=== PATIENT | female | born 1965 | race African-American/Black ===

== ENCOUNTER 2020-03-06 11:56 | Emergency (ER) | payer OTHER, SELFPAY ==
--- NOTE | ~2020-03-06 | XR_ITS ---
EXAMINATION: XR chest 1V portable DATE: 03/06/2020 13:24 INDICATION: Shortness of breath. TECHNIQUE: A single frontal view of the chest was obtained. COMPARISON: None. FINDINGS: The chest demonstrates clear lungs without pneumonia, pleural effusion, or pneumothorax. Th e heart size is normal. IMPRESSION: 1. No acute cardiopulmonary disease. Reviewed, dictated and finalized at location A.
[2020-03-06 12:06] VITALS: BP 159/104; PULSE 102; RESP 20; TEMP 37.3; O2SAT 95
--- NOTE | 2020-03-06 12:52 | ED.GENADULT ---
HPI - General Adult General Chief complaint: Unspecified Stated complaint: headaches/multiple complaints Time Seen by Provider: 03/06/20 12:17 History of Present Illness HPI narrative: History limited due to the fact that she is a poor historian. Alek reports several days of cough. It is productive. She says that she coughs until she spits and her sides hurt. Sometimes she feels short of breath. She has been seen at another ED and urgent care since the onset of her symptoms. It sounds like she was placed on antibiotics without improvement. She also reports loss of appetite and hematuria. Related Data Allergies Allergy/AdvReac Type Severity Reaction Status Date / Time ampicillin Allergy Unknown Unverified 02/21/15 18:52 codeine Allergy Unknown Unverified 02/21/15 18:52 Penicillins Allergy Unknown Unverified 02/21/15 18:52 Review of Systems Review of Systems: All systems reviewed & are unremarkable except as noted in HPI and below Constitutional: Constitutional: Reports chills and Reports fatigue Eyes: Eyes: Reports no additional eye complaints ENT: Reports dizziness, Reports nasal congestion and Reports sore throat Cardiovascular: Cardiovascular: Reports chest pain Respiratory: Respiratory: Reports chest congestion, Reports cough and Reports dyspnea Gastrointestinal: Gastrointestinal: Denies diarrhea and Reports nausea Genitourinary: Genitourinary: Reports hematuria and Reports flank pain Musculoskeletal: Musculoskeletal: Reports myalgias Neurologic: Denies syncope Endocrine: Endocrine: Denies polydipsia [facility] Past Medical History Medical History (Updated 03/06/20 @ 13:13 by Andrea Dixon MD) Asthma Hypertension Social History Social History (Updated 03/06/20 @ 13:13 by Andrea Dixon MD) Smoking status: Never smoker Gender identity (if verbalized by the patient): Female Exam Const: General: healthy appearing, no acute distress and alert Nutritional Appearance: obese Orientation/consciousness: patient oriented x3 HENMT: Head: normal to inspection Resp: Effort & Inspection: normal respiratory effort Auscultation: clear to auscultation bilaterally Cardio: Rate: regular rate Rhythm: regular rhythm GI: GI Palp: Yes Soft to palpation and No Tenderness to palpation present (GI) Skin: General skin exam: normal color Neuro: General: patient oriented x3 and moves all extremities Speech: normal speech Extrem: General: edema bilateral (trace) Psych: Affect: Anxious affect present Course Vital Signs Vital signs: Vital Signs Temperature 37.3 C 03/06/20 12:06 Pulse Rate 102 H 03/06/20 12:06 Respiratory Rate 20 03/06/20 12:06 Blood Pressure 159/104 H 03/06/20 12:06 Pulse Oximetry 95 03/06/20 12:06 Temperature 37.3 C 03/06/20 12:06 Pulse Rate 102 H 03/06/20 12:06 Respiratory Rate 20 03/06/20 12:06 Blood Pressure 159/104 H 03/06/20 12:06 Pulse Oximetry 95 03/06/20 12:06 Medical Decision Making MDM Narrative Medical decision making narrative: SHe has multiple complaint most concerning for viral URI. Possible that she could have UTI or pneumonia. Vital Signs Vital Signs: Vital Signs Temperature 37.3 C 03/06/20 12:06 Pulse Rate 102 H 03/06/20 12:06 Respiratory Rate 20 03/06/20 12:06 Blood Pressure 159/104 H 03/06/20 12:06 Pulse Oximetry 95 03/06/20 12:06 Temperature 37.3 C 03/06/20 12:06 Pulse Rate 102 H 03/06/20 12:06 Respiratory Rate 20 03/06/20 12:06 Blood Pressure 159/104 H 03/06/20 12:06 Pulse Oximetry 95 03/06/20 12:06 Discharge Plan Discharge Follow-up/Referrals: UNKNOWN,DOCTOR [Primary Care Provider] -
[2020-03-06 13:27] LABS: Basophils Percent Auto 0.2 % (0.2-1.2); Eosinophils Percent Auto 0.5 % (0-4.4); Hematocrit 42.9 % (37.0-47.0); Hemoglobin 13.6 g/dL (12.0-15.0); Immature Granulocyte Absolute 0.04 K/mm3 (0.00-0.031); Immature Granulocyte Percent A 0.5 % (0-0.5); Lymphocytes Absolute Auto 1.61 K/mm3 (0.9-3.2); Lymphocytes Percent Auto 19.7 % (18.3-44.2); Mean Corpuscular HGB Conc 31.7 g/dl (32-36); Mean Corpuscular Hemoglobin 27.3 pg (26-34); Mean Corpuscular Volume 86.1 fl (80-100); Mean Platelet Volume 9.1 fl (7.4-10.4); Monocytes Absolute Auto 0.6 K/mm3 (0.1-0.6); Monocytes Percent Auto 7.4 % (2.6-8.5); Neutrophils Absolute Auto 5.9 K/mm3 (1.3-6.7); Neutrophils Percent Auto 71.7 % (45.5-73.1); Platelet Count Result 338 k/mm3 (150-375); Red Blood Count 4.98 M/mm3 (4.2-5.4); Red Cell Distribution Width 14.6 % (11.5-14.5); White Blood Count 8.2 K/mm3 (4.5-10.0)
[2020-03-06 13:38] LABS: Blood Urea Nitrogen 7 mg/dL (7-17); Calcium 8.8 mg/dL (8.4-10.2); Carbon Dioxide 23 mmol/L (22-30); Chloride 107 mmol/L (98-107); Estimated Glomerular Filt Rate > 60; Glucose 99 mg/dL (65-105); Potassium 3.7 mmol/L (3.4-5.0); Sodium 139 mmol/L (137-145)
[2020-03-06] MEDS: KETOROLAC (*BKC) 60 MG/2 ML VIAL IM (14:06)
[2020-03-06 14:24] LABS: Add Urine Microscopic? YES; Appearance Urine Clear (Clear); Bacteria Urine Trace /hpf; Bilirubin Urine Negative (Negative); Blood Urine 1+ (Negative); Color Urine Yellow (Yellow); Glucose Urine UA Negative (Negative); Ketones Urine 1+ mg/dL (Negative); Leukocyte Esterase Ur Negative LEU/UL (Negative); Mucus Urine Rare /lpf; Nitrate Urine Negative (Negative); Protein Urine Negative (Negative); RBC Urine 0-2 /hpf (0-2); Specific Grav Ur 1.017 (1.001-1.035); Squamous Epithelial Cell Urine Moderate /hpf (Few); Urobilinogen Urine Negative mg/dL (<2.0); WBC Urine 0-3 /hpf
[2020-03-06 15:02] VITALS: BP 144/88; PULSE 82; RESP 16; O2SAT 99
[2020-03-06 15:42] VITALS: BP 160/100; PULSE 78; RESP 14; O2SAT 99
== END 2020-03-06 15:47 | disposition home or self-care (01) ==
PROVIDERS: Emergency Provider Emergency Medicine
DX: J06.9 Acute upper respiratory infection, unspecified (principal); J45.909 Unspecified asthma, uncomplicated; I10 Essential (primary) hypertension
CPT/HCPCS: 36415; 71045; 80048; 81001; 85025; 96372; 99283; J1885

== ENCOUNTER 2025-02-13 10:50 | Emergency (ER) | payer OTHER, SELFPAY ==
--- NOTE | ~2025-02-13 | US_ITS ---
EXAMINATION:US venous doppler LE BI INDICATION:Leg pain TECHNIQUE: Multiple grayscale, color flow and Doppler images of the right and left lower extremity de ep venous systems were obtained and reviewed. COMPARISON:No prior studies for comparison. FINDINGS: The common femoral, superficial femoral and popliteal veins demonstrate normal respiratory variation, augmentation and compressibility. Color flow is also seen within the posterior tibial, pe roneal, greater saphenous and profunda veins. IMPRESSION: 1: No lower extremity deep venous thrombosis. Reviewed, dictated and finalized at location B.
--- NOTE | ~2025-02-13 | XR_ITS ---
XR finger 1st RT min 2V 02/13/2025 12:02 Indication: Right first finger pain Procedure: 3 views right first finger Comparison: No prior studies for comparison. Findings: There is polyarticular osteoarthritis. No fracture, subluxation or dislocation. No signific ant soft tissue abnormality. No foreign bodies. Impression: 1: Moderate polyarticular osteoarthritis, most advanced at the first metacarpal phalangeal joint. Reviewed, dictated and finalized at location B. Impression: 1: Moderate polyarticular osteoarthritis, most advanced at the first metacarpal phalangeal joint.
--- OUTSIDE RECORDS SUMMARY | 2025-02-13 10:53 | XMS_ITS | Data Portability ---
Author Organization [facility] YULIYAShayla Address [address] [facility] [place] [address] Assessment No assessment recorded. Plan of Treatment Reminders Order Date Submit Date Provider Last Modified By Organization Details Last Modified Time Details Appointments None recorded. Lab TSH + free T4, serum 2021 [facility], [address] Mary [address], [address], [place], [address], 13:08:10 thyroperox idase Ab, serum 2021 NATAL[facility]A [facility], 2022 Mary Jo Nash, [address], [place], [address], 13:08:09 CBC 2021 [facility], 2022 Mary Jo Nash, [address], [place], [address], 13:08:10 lipid panel, serum 2021 [facility], 2022 Mary Jo Nash, [address], [place], [address], 13:08:10 CMP, serum or plasma 2021 [facility], 2022 Mary Jo Nash, [address], [place], [address], 13:08:09 Referral orthopedic surgeon referral 2021 022 [facility], [address] [place], [address], 3 11:45:37 plastic surgeon referral - right anterior neck . lipoma . PLease eval and treat . Thank you 2021 022 [facility] Damion Ramsey MD, [address] [facility] [place], [address], 2 12:30:19 Procedures None recorded. Surgeries None recorded. Imaging electromyo gram + nerve conduction study - possible carpal tunnel 2021 NATALIIAJulio Mcfadden, [address], [place], [address], 2 18:05:10 Medication Orders omeprazole 20 mg capsule,de layed release 2023 024 [facility] [address] In [facility], [address] [place] [address], [address], 4 12:53:21 Pennsaid 20 mg/gram/ac tuation (2 %) topical soln in metered-do se pump 2023 024 [facility] [address] In [facility], [address] [place] [address], [address], 4 12:36:52 albuterol sulfate HFA 90 mcg/actuat ion aerosol inhaler 2023 024 [facility] [address], [address], 4 12:36:51 ipratropiu m 0.5 mg-albuter ol 3 mg (2.5 mg base)/3 mL nebulizati on soln 2023 024 [facility] [address] In [facility], [address] [place] [address], [address], 4 12:36:50 promethazi ne-DM 6.25 mg-15 mg/5 mL oral syrup 2023 024 NATALIIA HARRY [address] In [facility], [address] [place] [address], [address], 4 12:41:38 olmesartan 20 mg tablet 2023 024 [facility] [address] In [facility], [address] [place] [address], [address], 4 12:36:50 Pennsaid 20 mg/gram/ac tuation (2 %) topical soln in metered-do se pump 2021 [facility], [address] [place] [address], [id number], 2 13:11:21 albuterol sulfate HFA 90 mcg/actuat ion aerosol inhaler 2021 022 [facility] [address] In [facility], [address] [place] [address], [address], 2 13:04:44 Qvar RediHaler 80 mcg/actuat ion HFA breath activated aerosol 2021 [facility] [address] In [facility], [address] [place] [address], [address], 2 13:04:45 olmesartan 20 mg tablet 2021 022 [facility], [address] [place] [address], [id number], 4 13:31:43 hydrochlor othiazide 25 mg tablet 2021 022 [email or web address] [address] In [facility], [address] [place] [address], [address], 2 12:45:18 Zithromax 500 mg tablet 2021 022 [email or web address] [address] In [facility], [address] [place] [address], [address], 12:12:10 promethazi ne 6.25 mg/5 mL oral syrup 2021 [facility] [address] In [facility], [address] [place] [address], [address], 2 19:53:36 Pennsaid 20 mg/gram/ac tuation (2 %) topical soln in metered-do se pump 2021 [facility], [address] [place] [address], [id number], 20:20:12 Pennsaid 20 mg/gram/ac tuation (2 %) topical soln in metered-do se pump 2021 [facility], [address] [place] [address], [id number], 11:24:45 prednisone 20 mg tablet 2021 [facility] [address], [address], 2 12:12:46 Patient TargetsNo targets recorded. Patient Instructions Encounter Date Encounter Id Patient Instructions Last Modified By Organization Details Last Modified Time 07/18/2022 [id number] When You Want to Lose Weight: Care Instructions [email or web address] Not available 07/18/2022 19:53:33 learning about h igh blood pressure [email or web address] Not available 07/18/2022 19:53:33 ear infection (otitis media): care instructions [email or web address] Not available 07/18/2022 19:53:33 Take your medications as directed. Keep adequate fluid intake. Keep comfortable. The temperature is cooling a bit now, but stay well hydrated. Follow the 5 [place] [facility]. Follow up with your doctor lissa Not available 07/18/2022 19:55:29 11/12/2022 [id number] goiter: care instructions [email or web address] Not available 11/12/2022 13:04:40 allergies: care instructions [email or web address] Not available 11/12/2022 13:04:40 managing your allergies: care instructions [email or web address] Not available 11/12/2022 13:04:40 gastroesophageal reflux disease (GERD): care instructions [email or web address] Not available 11/12/2022 13:07:58 When You Want to Lose Weight: Care Instructions [email or web address] Not available 11/12/2022 13:04:40 A healthy lifest yle: care instructions Not available 11/12/2022 13:07:59 high cholesterol : care instructions [email or web address] Not available 11/12/2022 13:04:40 12/11/2023 [id number] Indigestion (Dyspepsia): Care Instructions [email or web address] Not available 12/11/2023 12:53:17 controlling your asthma: care instructions Not available 12/11/2023 12:36:45 learning about asthma [email or web address] Not available 12/11/2023 12:36:45 cough: care instructions [email or web address] Not available 12/11/2023 12:41:35 learning about h igh blood pressure [email or web address] Not available 12/11/2023 12:36:44 Reason for Referral Plastic Surgeon Referral for Lipoma of skin and subcutaneous tissue of neck right anterior neck . lipoma . PLease eval and treat . Thank you Referring Physician: Elias Laboy, Family Medicine, Encounter Date: 01/15/2022 Orthopedic Surgeon Referral for Osteoarthritis of knee Severe OA both knees Referring Physician: Saba Gamez, Internal Medicine, Encounter Date: 11/12/2022 Results Created Date Observation Date Name Description Value Unit Range Abnormal Flag Note LastModifiedBy Organization Detail LastModifiedTime 11/03/20 21 11/03/2021 XR, chest No observ ation record ed. [facility] [address] [place], [address], 12/05/2021 11:19:06 11/03/20 21 11/03/2021 XR, knee, 4 or more view No observ ation record ed. [email or web address] [place], [address], 11/27/2021 21:02:04 11/03/20 21 11/03/2021 CT, angio gram, chest , w/ contr ast No observ ation record ed. [facility] [address] [place], [address], 12/05/2021 11:15:09 04/05/20 22 04/05/2022 XR, chest No observ ation record ed. [facility] [address] [place], [address], 04/24/2022 13:58:28 04/05/20 22 04/05/2022 CT, angio gram, chest , w/ contr ast No observ ation record ed. [facility] [address] [place], [address], 04/24/2022 13:54:35 05/24/20 22 05/24/2022 XR, chest No observ ation record ed. [facility] [address] [place], [address], 05/29/2022 12:17:24 05/24/20 22 05/24/2022 CT, angio gram, chest , w/ contr ast No observ ation record ed. [facility] [address] [place], [address], 05/29/2022 12:17:15 02/29/20 23 02/28/2023 XR, chest No observ ation record ed. [facility] [address] [place], [address], 03/27/2023 09:09:32 02/29/20 23 02/28/2023 CT, angio gram, chest , w/ contr ast No observ ation record ed. [email or web address] [facility] [address] [place], [address], 03/27/2023 05:35:40 02/29/20 23 02/28/2023 CT, abdom en + pelvi s, w/o contr ast No observ ation record ed. [facility] [address] [place], [address], 03/27/2023 09:09:33 03/02/20 23 03/02/2023 XR, chest No observ ation record ed. [facility] [address] [place], [address], 03/27/2023 09:09:33 Result Notes None recorded. Problems Name Problem SNOMED Code Status Onset Date Resolution Date Notes Provider Name and Address Organization Details Recorded Time Pain 89932649 Active Dana Arambula [place] null, [place] - [facility] 2 19:27:01 Gastroesoph ageal reflux disease 152063465 Active 2020 Dana Ar[place] [facility] 2 19:26:29 Asthma 784447102 Active 2020 Dana Ar[place] [facility] 2 19:26:15 Allergic rhinitis 69769222 Active 2020 [place] [facility] 2 19:26:09 Hyperlipide abigail 90184147 Active 2020 [place] [facility] 2 19:26:41 Pain of knee region 4764770955 Active 2020 Elias Laboy PA-C Attn: Bro g,[address] [facility], [place], [address], [place] [facility] 1 12:03:57 Osteoarthri tis of knee 875903267 Active 2020 Dana Aramb[place] [facility] 2 19:26:58 Bilateral wrist pain 9068456548000 9105 Active 2021 Dana Aarmbula [place] [facility] 2 19:26:23 Lipoma of skin and subcutaneou s tissue of neck 02592906 Active 2021 Dana Ar[place] [facility] 2 19:26:50 Cough 66740092 Active 2023 Saba Gamez MD Attn: Annabellamarc brown,[address] [place], [address], [place] [facility] 4 12:40:19 Indigestion 509370345 Active 2023 Saba Gamez MD Attn: Bro kevin,[address] [place], [address], [place] [facility] 4 12:52:13 Essential hypertensio n 00794308 Active Dana Aramb[place] [facility] 2 19:26:26 Knee pain Active Elias Laboy PA-C Attn: Annabellamarc brown,[address] [place], [address], [place] [facility] 1 12:03:22 Goiter 1340730 Active Dana Chaudhariot REED [place] [facility] 2 19:26:37 Shoulder pain 07434070 Active [place] Aramb[place] [facility] 2 19:27:07 Abdominal pain 80385995 Active 2015 Tanner Brantley MD Attn: Annabellamarc g,[address] [place], [address], [place] [facility] 6 13:57:04 Morbid obesity 293817476 Active Danaanahi Arambula [place] [facility] 2 19:26:55 Amenorrhea 37066199 Active REED [place] [facility] 2 19:26:12 Postmenopau rachid bleeding 74469573 Active REED [place] [facility] 2 19:27:04 Upper respiratory infection 48798380 Active REED [place] [facility] 2 19:27:10 Mass of thyroid gland 072162541 Active REED [place] [facility] 2 19:26:52 Notes:Some problems listed i n Documents: #[id number], #[id number] could not be added to this patient's chart. Please review these documents and add these problems to the patient's chart manually as needed. Problem Notes None recorded. Procedures Surgical History Date Name Laterality Status Provider Name and Address Organization Details Recorded Time 05/10/20 21 Cholecystectomy completed Valeria Ar[place]ate [place] [facility] 08/04/2021 11:44:44 06/06/20 16 Date of Last Mammogram completed Dana Ar[place]ula [place] [facility] 07/18/2022 19:27:48 05/24/20 16 Endometrial Biopsy completed Germán Blanton MD Attn: Accounting, [address] [place], [address], [facility] - [facility] 05/24/2016 15:49:49 05/18/20 16 Date of Last Pap Smear completed Dana Ar[place]ula [place] [facility] 07/18/2022 19:28:09 11/25/18 94 Tubal Ligation completed Emma Bolaños [place] [facility] 04/26/2016 12:05:57 11/25/18 94 Caesarean Section [place] Bolaños [place] [facility] 04/26/2016 12:05:57 11/25/18 92 Caesarean Section [place]ola[place] [facility] 04/26/2016 12:05:57 11/25/18 86 Caesarean Section completed [place] Bolaños [place] [facility] 04/26/2016 12:05:57 11/25/18 82 Caesarean Section completed [place] Bolaños [place] [facility] 04/26/2016 12:05:57 Imaging Results Imaging Date Name Status [facility]Modified by [facility] Details LastModified Time 11/03/2021 XR, chest completed [facility] [address] [place], [address], 12/05/2021 11:19:06 11/03/2021 XR, knee, 4 or more view completed [email or web address] [place], [address], 11/27/2021 21:02:04 11/03/2021 CT, angiogram, chest, w/ contrast completed [facility] [address] [place], [address], 12/05/2021 11:15:09 04/05/2022 XR, chest completed [facility] [address] [place], [address], 04/24/2022 13:58:28 04/05/2022 CT, angiogram, chest, w/ contrast completed [facility] [address] [place], [address], 04/24/2022 13:54:35 05/24/2022 XR, chest completed [facility] [address] [place], [address], 05/29/2022 12:17:24 05/24/2022 CT, angiogram, chest, w/ contrast completed [facility] [address] [place], [address], 05/29/2022 12:17:15 02/28/2023 XR, chest completed [facility] [address] [place], [address], 03/27/2023 09:09:32 02/28/2023 CT, angiogram, chest, w/ contrast completed [address] [place], [address], 03/27/2023 05:35:40 02/28/2023 CT, abdomen + pelvis, w/o contrast completed [facility] [address] [place], [address], 03/27/2023 09:09:33 03/02/2023 XR, chest completed [facility] [address] [place], [address], 03/27/2023 09:09:33 Procedure Notes None recorded. Medical Equipment None Reported. Allergies Allergen ID Allergen Name Allergen Category Reaction Reaction Severity Criticality Documentation Date Start Date Code Code System Note Provider Name and Address Organization Details Recorded Time amoxicill in medicatio n nausea Not available Not available 12/24/2014 723 RxNorm Not Available Not Available Not Available Product containin g penicilli n (product) medicatio n nausea Not available Not available 12/24/2014 32313 8001 SNOMED Not Available Not Available Not Available codeine medicatio n vomiting Not available Not available 12/24/2014 2670 RxNorm Not Available Not Available Not Available Medications Name Sig Start Date Stop Date Status Note LastModified by Organization Details LastModified Time celecoxib 200 mg capsule active Not Available Not Available Not Available glycopyrr olate 1 mg tablet TAKE 1 TABLET BY MOUTH THREE TIMES DAILY NEEDED 08/04 completed Not Available Not Available Not Available cyclobenz aprine 10 mg tablet TAKE 1 TABLET BY MOUTH 3 TIMES A DAY NEEDED active Not Available Not Available No t Available amoxicill in 500 mg capsule Take 1 capsule 3 times a day by oral route as directed for 10 days. 08/04 completed Not Available Not Available Not Available Qvar 80 mcg/actua tion Metered Aerosol oral inhaler INHALE TWO PUFFS BY MOUTH TWICE A DAY 07/18 completed Not Available Not Available Not Available promethaz ine-DM 6.25 mg-15 mg/5 mL oral syrup TAKE 5 MILLILIT ERS BY MOUTH 4 TIMES A DAY active Not Available Not Available No t Available ipratropi um 0.5 mg-albute rol 3 mg (2.5 mg base)/3 mL nebulizat ion soln INHALE 3 ML BY NEBULIZA TION 4 TIMES A DAY NEEDED active Not Available Not Available No t Available prednisol one sodium phosphate 15 mg/5 mL (3 mg/mL) oral solution TAKE 20 ML BY MOUTH ONCE DAILY active Not Available Not Available No t Available albuterol sulfate 2.5 mg/3 mL (0.083 %) solution for nebulizat ion Inhale 3 mL 3 times a day by nebuliza tion route. active Not Available Not Available No t Available Remeron 30 mg tablet Take 1 tablet every day by oral route at bedtime for 30 days. 08/04 completed Not Available Not Available Not Available cetirizin e 10 mg tablet TAKE 1 TABLET BY MOUTH EVERY DAY active Not Available Not Available No t Available azithromy matt 250 mg tablet TAKE 2 TABLETS BY MOUTH TODAY, THEN TAKE 1 TABLET DAILY FOR 4 DAYS 11/12 completed Not Available Not Available Not Available ibuprofen 800 mg tablet TAKE 1 TABLET BY MOUTH THREE TIMES A DAY WITH MEALS active Not Available Not Available No t Available hydrocodo ne 5 mg-acetam inophen 325 mg tablet TAKE 1 TABLET BY MOUTH EVERY 6 HOURS NEEDED FOR PAIN 11/12 completed Not Available Not Available Not Available promethaz ine 6.25 mg/5 mL oral syrup TAKE 20 ML EVERY DAY BY ORAL ROUTE. active Not Available Not Available No t Available meloxicam 15 mg tablet TAKE 1 TABLET BY MOUTH EVERY DAY active Not Available Not Available No t Available sucralfat e 1 gram tablet TAKE 1 TABLET BY MOUTH TWICE DAILY FOR 1 MONTH NEEDED active Not Available Not Available No t Available lisinopri l 20 mg tablet TAKE ONE TABLET BY MOUTH ONCE DAILY 08/04 completed Not Available Not Available Not Available famotidin e 40 mg tablet TAKE 1 TABLET BY MOUTH TWICE DAILY FOR 3 MONTHS active Not Available Not Available No t Available prednison e 20 mg tablet TAKE 2 TABLETS BY MOUTH EVERY DAY FOR 5 DAYS active Not Available Not Available No t Available atenolol 50 mg-chlort halidone 25 mg tablet TAKE 1 TABLET BY MOUTH EVERY DAY DIRECTED 11/12 completed Not Available Not Available Not Available clobetaso l 0.05 % topical cream 08/04 completed Not Available Not Available Not Available Nexium 40 mg capsule,d elayed release Take 1 capsule every day by oral route as directed for 30 days. 08/04 completed Not Available Not Available Not Available potassium chloride ER 10 mEq tablet,ex tended release TAKE ONE TABLET BY MOUTH ONCE DAILY 11/12 completed Not Available Not Available Not Available fexofenad ine 180 mg tablet TAKE 1 TABLET BY MOUTH EVERY DAY IN THE MORNING 11/12 completed Not Available Not Available Not Available amlodipin e 5 mg tablet TAKE 1 TABLET BY MOUTH EVERY DAY 11/12 completed Not Available Not Available Not Available sulfameth oxazole 800 mg-trimet hoprim 160 mg tablet Take 1 tablet every 12 hours by oral route as directed for 7 days. 08/04 completed Not Available Not Available Not Available doxycycli ne monohydra te 100 mg tablet TAKE 1 TABLET BY MOUTH TWICE A DAY active Not Available Not Available No t Available tramadol 50 mg tablet Take 1 tablet(s ) twice a day by oral route as needed for 30 days. 08/04 completed Not Available Not Available Not Available ketorolac 10 mg tablet TAKE 1 TABLET BY MOUTH EVERY 4 6 HOURS. DO NOT EXCEED 4 TABLETS IN 24HRS FOR UP TO 5 DAYS TOTAL USE 08/04 completed Not Available Not Available Not Available famotidin e 20 mg tablet TAKE 1 TABLET BY MOUTH TWICE A DAY BEFORE MEALS 07/18 completed Not Available Not Available Not Available dicyclomi ne 20 mg tablet TAKE 1 TABLET BY MOUTH FOUR TIMES A DAY active Not Available Not Available No t Available benzonata te 100 mg capsule TAKE 1 CAPSULE BY MOUTH EVERY 8 HOURS NEEDED FOR COUGH AND CONGESTI ON active Not Available Not Available No t Available hydrocodo ne 7.5 mg-acetam inophen 325 mg tablet TAKE ONE TABLET BY MOUTH EVERY 6 HOURS NEEDED FOR PAIN active Not Available Not Available No t Available cephalexi n 250 mg/5 mL oral suspensio n TAKE 10 MILLILIT ERS BY MOUTH 2 TIMES A DAY. DISCARD REMAINDE R active Not Available Not Available No t Available misoprost ol 200 mcg tablet Take 1 tablet 4 times a day by oral route for 3 days. 08/04 completed Not Available Not Available Not Available hydrochlo rothiazid e 12.5 mg capsule 08/04 completed Not Available Not Available Not Available mometason e 50 mcg/actua tion nasal spray 2 sprays every day by nasal route 11/12 completed Not Available Not Available Not Available omeprazol e 20 mg capsule,d elayed release TAKE 1 CAPSULE BY MOUTH EVERY DAY active Not Available Not Available No t Available diclofena c sodium 75 mg tablet,de layed release TAKE 1 TABLET BY MOUTH TWICE A DAY active Not Available Not Available No t Available hydrochlo rothiazid e 25 mg tablet TAKE 1 TABLET BY MOUTH EVERY DAY 11/12 completed Never used by patient Not Available Not Available Not Available furosemid e 20 mg tablet TAKE 1 TABLET BY MOUTH ONCE DAILY 11/12 completed Not Available Not Available Not Available levofloxa matt 500 mg tablet 08/04 completed Not Available Not Available Not Available levofloxa matt 750 mg tablet 08/04 completed Not Available Not Available Not Available albuterol sulfate HFA 90 mcg/actua tion aerosol inhaler INHALE 2 PUFFS BY MOUTH TWICE A DAY NEEDED. active Not Available Not Available No t Available ondansetr on 4 mg disintegr ating tablet DISSOLVE 1 TABLET ON THE TONGUE EVERY 8 HOURS 08/04 completed Not Available Not Available Not Available losartan 100 mg tablet TAKE 1 TABLET BY MOUTH EVERY DAY 08/04 completed n/v , made her feel bad Not Available Not Available Not Available fluticaso ne propionat e 50 mcg/actua tion nasal spray,maureen pension INHALE 2 SPRAYS EVERY DAY BY INTRANAS AL ROUTE in each nostril DIRECTED FOR 30 DAYS. 11/12 completed Not Available Not Available Not Available doxycycli ne hyclate 100 mg tablet TAKE 1 TABLET BY MOUTH TWICE A DAY FOR 10 DAYS active Not Available Not Available No t Available dicyclomi ne 10 mg capsule TAKE 1 CAPSULE BY MOUTH TWICE A DAY NEEDED FOR 30 DAYS active Not Available Not Available No t Available loratadin e 10 mg tablet TAKE 1 TABLET BY MOUTH EVERY DAY IN THE MORNING 2021 active Not Available Not Available Not Avai lable olmesarta n 20 mg tablet TAKE 1 TABLET BY MOUTH EVERY DAY IN THE MORNING active Not Available Not Available No t Available azithromy matt 500 mg tablet TAKE 1 TABLET BY MOUTH EVERY DAY FOR 3 DAYS 11/12 completed Not Available Not Available Not Available nitrofura ntoin monohydra te/macroc rystals 100 mg capsule TAKE ONE CAPSULE BY MOUTH EVERY 12 HOURS FOR 10 DAYS active Not Available Not Available No t Available diclofena c 20 mg/gram/a ctuation (2 %) topical soln metered-d ose pump Apply by topical route for 28 days. active Not Available Not Available No t Available Qvar RediHaler 80 mcg/actua tion HFA breath activated aerosol INHALE 2 PUFFS INTO THE LUNGS TWICE A DAY FOR 30 DAYS active Not Available Not Available No t Available Vitals Date Recorded Body height Body mass index (BMI) Body weight Oxygen saturation Oxygen saturation in Arterial blood by Pulse oximetry Heart rate Systolic blood pressure Diastolic blood pressure Provider Name and Address Organization Details Last Updated DateTime 2 149.86 cm 53.5 kg/m2 564231. 26 g 91 % 91 % 63 /min 138 mm[Hg] 80 mm[Hg] Valeria Arzate [place] [facility] 2 10:59:49 Date Recorded Body height Body mass index (BMI) Body weight Oxygen saturation Oxygen saturation in Arterial blood by Pulse oximetry Heart rate Body temperature Systolic blood pressure Diastolic blood pressure Provider Name and Address Organization Details Last Updated DateTime 2 149.86 cm 59.4 kg/m2 815455. 16 g 99 % 99 % 82 /min 98.5 [degF] 132 mm[Hg] 78 mm[Hg] Valeria Arzate [place] [facility] 2 12:29:10 Date Recorded Body height Body mass index (BMI) Body weight Oxygen saturation Oxygen saturation in Arterial blood by Pulse oximetry Heart rate Respiratory rate Body temperature Systolic blood pressure Diastolic blood pressure Provider Name and Address Organization Details Last Updated DateTime 2 149.86 cm 59.2 kg/m2 358466. 56 g 98 % 98 % 90 /min 18 /min 98.1 [degF] 150 mm[Hg] 90 mm[Hg] [place] Arambula [place] [facility] 2 19:24:20 Date Recorded Body height Body mass index (BMI) Body weight Body temperature Heart rate Oxygen saturation Oxygen saturation in Arterial blood by Pulse oximetry Systolic blood pressure Diastolic blood pressure Provider Name and Address Organization Details Last Updated DateTime 2 149.86 cm 59.8 kg/m2 224096. 34 g 98 [degF] 88 /min 98 % 98 % 120 mm[Hg] 84 mm[Hg] Cecilia Markham MA [facility] 2 12:23:06 Date Recorded Body height Body mass index (BMI) Body weight Heart rate Body temperature Oxygen saturation Oxygen saturation in Arterial blood by Pulse oximetry Systolic blood pressure Diastolic blood pressure Provider Name and Address Organization Details Last Updated DateTime 4 149.86 cm 58.2 kg/m2 211846. 6 g 93 /min 98.1 [degF] 97 % 97 % 170 mm[Hg] 90 mm[Hg] Cecilia Markham [place] - [facility] 4 12:07:59 Social History Question Answer Notes LastModified by Organizat ion Details LastModified Time Tobacco Smoking Status Never Smoker Becki Rueda MA null, [place] - [facility] 12/24/2014 13:39:29 Do You Have An Advance Directive? Yes Information not available 07/18/2022 What Is Your Level Of Alcohol Consumption? Occasional [email or web address] Information not available 04/26/2016 Are You Blind Or Do You Have Difficulty Seeing? Yes Wears Glasses Information not available 08/04/2021 Is Blood Transfusion Acceptable In An Emergency? Yes [email or web address] Information not available 04/26/2016 What Is Your Level Of Caffeine Consumption? None Information not available 08/04/2021 How Much Tobacco Do You Chew? None [email or web address] Information not available 04/26/2016 In The 14 Days Before Symptom Onset, Have You Had Close Contact With A Laboratory-confir med COVID-19 While That Case Was Ill? No Information not available 07/18/2022 In The 14 Days Before Symptom Onset, Have You Had Close Contact With A Person Who Is Under Investigation For COVID-19 While That Person Was Ill? No Information not available 07/18/2022 Have You Been To An Area Known To Be High Risk For COVID-19? No Information not available 07/18/2022 Are You Currently Employed? Yes [email or web address] Information not available 04/26/2016 Are You Deaf Or Do You Have Serious Difficulty Hearing? No Information not available 08/04/2021 What Type Of Diet Are You Following? REGULAR [email or web address] Information not available 04/26/2016 Which Illicit Or Recreational Drugs Have You Used? 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 No Information not available 08/04/2021 Live Alone Or With Others? Alone [email or web address] Information not available 04/26/2016 What Was The Date Of Your Most Recent Tobacco Screening? 12/11/2023 Information not available 12/11/2023 How Many Children Do You Have? 4 [email or web address] Information not available 04/26/2016 Performs Monthly Self-breast Exam? Yes [email or web address] Information no t available 04/26/2016 What Is Your Relationship Status? Single [email or web address] Information not available 04/26/2016 Do You Use Your Seat Belt Or Car Seat Routinely? Yes Information not available 08/04/2021 Seat Belts Used Routinely Yes [email or web address] Information not available 04/26/2016 Are You Sexually Active? No [email or web address] Information not available 04/26/2016 Do You Have Smoke And Carbon Monoxide Detectors In Your Home? Yes Information not available 08/04/2021 Are You Passively Exposed To Smoke? No Information no t available 08/04/2021 How Much Tobacco Do You Smoke? No [email or web address] Information not available 05/24/2016 General Stress Level Medium Information not available 04/26/2016 Do You Feel Stressed (tense, Restless, Nervous, Or Anxious, Or Unable To Sleep At Night)? [id number] Information not available 08/04/2021 Do You Use Any Illicit Or Recreational Drugs? No Information not available 07/18/2022 Do You Use Sunscreen Routinely? No [email or web address] Information not available 04/26/2016 Has Tobacco Cessation Counseling Been Provided? Yes Information not available 08/04/2021 On What Date Was Tobacco Cessation Counseling Provided? 12/11/2023 Information not available 12/11/2023 Do You Or Have You Ever Used Any Other Forms Of Tobacco Or Nicotine? No Information not available 07/18/2022 Sex: Female Functional Status Question Answer Note LastModified by Organizat ion Details LastModified Time Are you able to care for yourself? Yes Information not available 08/04/2021 What is your exercise level? Occasional [email or web address] Information not available 04/26/2016 Mental Status None recorded. Family History Relationship Description Onset Age of this Age Resolved Age Notes LastModified by Organization Details LastModified Time Mother Hypertensive disorder [email or web address] Not available 2015 10:36:50 Father Cerebrovascu lar accident [email or web address] Not available 10:36:50 Medical History Condition Response Coronary Artery Disease N Other N Atrial Fibrillation N High Blood Pressure Y Depression N COPD N Blood Clots N Anxiety Disorder N Muscle, Joint, or Bone Problems Y Acid Reflux (GERD) Y Cancer N Stroke N ADHD N High Cholesterol Y Liver Disease N Schizophrenia N Headaches N Thyroid Problems Y Kidney or Bladder Problems N GI Problems N Eating Disorder N Skin Problems N Anemia N Heart Attack ([place]) N Diabetes N Seizures/Epilepsy N Asthma Y Allergies Y Substance Abuse N Hepatitis N Heart Failure N Osteoporosis N Gynecological History Statement/Question Response Date of Last Mammogram 06/06/2016 On BCP's at Conception? N STIs/STDs N HPV Vaccine N Age at Menarche 13 Current Control Method Menopause Age at First Child 17 Sexually Active? N Menses Monthly N Date of Last Pap Smear 05/18/2016 Sexual Problems? N LMP Unknown Obstetrics History GPAL:G 5 P 4 0 1 4 Type Value Multiple Births 0 Full Term 4 Induced 0 Spontaneous 1 Premature 0 Living 4 Ectopics 0 Total 5 Past Encounters Encounter ID Performer Location Encounter Start Date Encounter Closed Date Diagnosis/Indication Diagnosis SNOMED-CT Code Diagnosis ICD10 Code Diagnosis Note [id number] Mariana Lemus MA [facility] (Adult/Fa m Med) [address] [place] [address] 12/24/2014 13:24:42 12/24/2014 16:21:49 Pain [id number] Tanner Brantley MD [facility] (Adult/Fa m Med) [address] [place] [address] 09/15/2015 15:09:20 09/16/2015 16:20:00 Essential hypertension 08165095 I10 Knee pain 89426633 M25.5 62 M25.561 [id number] Ale Vazquez [facility] (Adult/Fa m Med) [address] [place] [address] 11/09/2015 12:51:53 11/09/2015 17:51:13 Essential hypertension 73489943 I10 Knee pain 16430351 M25.5 62 M25.561 Goiter 9006085 E04.9 [id number] Linda Jeffries MA [facility] (Adult/Fa m Med) [address] [place] [address] 02/23/2016 15:44:52 02/23/2016 17:29:49 Essential hypertension 61513840 I10 Shoulder pain 96715319 M 25.511 [id number] Tanner Brantley MD [facility] (Adult/Fa m Med) [address] [place] [address] 04/06/2016 13:40:57 04/06/2016 16:34:21 Essential hypertension 29344396 I10 Knee pain 11497919 M25.5 61 Shoulder pain 24794691 M 25.511 Abdominal pain 53109512 R10.811 [id number] MD [facility] (MEDIA TECHNICIAN) [address] [place] [address] 8 04/26/2016 11:17:34 05/07/2016 14:50:33 Morbid obesity 734550506 E66.01 Amenorrhea 22566254 N91. 2 for 11 years now with 2 days of menstrual like d/c. Get old chart. Gynecologi c examination 51498935 Z01.411 [id number] MD Eulalio [facility] (MEDIA TECHNICIAN) [address] [address] 8 05/18/2016 11:53:14 05/21/2016 12:40:50 Postmenopausal bleeding 10028682 N95.0 [id number] MD [facility] (MEDIA TECHNICIAN) [address] [place] [address] 05/24/2016 10:20:51 05/29/2016 15:59:11 Postmenopausal bleeding 10881591 N95.0 [id number] Ale Vazquez [facility] (Adult/Fa m Med) [address] [place] [address] 06/07/2016 11:06:33 06/07/2016 14:44:31 Essential hypertension 13808625 I10 Morbid obesity 886961362 E66.01 Abdominal pain 64892473 R10.811 Goiter 1531815 E04.9 Knee pain 38228221 M25.5 61 Shoulder pain 49915801 M 25.511 Upper resp iratory infection 91539020 J06.9 [id number] Ale Vazquez [facility] (Adult/Fa m Med) [address] [place] [address] 2016 11:08:21 2016 17:45:46 Essential hypertension 74208463 I10 Morbid obesity 997402010 E66.01 Abdominal pain 52630980 R10.811 Knee pain 26846563 M25.5 61 Upper resp iratory infection 73725668 J06.9 Mass of thyroid gland [address] SCAN OF neck [id number] Tanner Brantley MD [facility] (Adult/Fa m Med) [address] [place] [address] 12/06/2016 16:17:39 12/14/2016 15:47:38 Essential hypertension 54346934 I10 Knee pain 61805789 M25.5 61 Chronic neck pain 443370 1354 107 M54.2 Low back pain 017584200 M54.5 Allergic rhinitis 887146 04 J30.9 [id number] Tanner Brantley MD [facility] (Adult/Fa m Med) [address] [place] [address] 01/18/2017 16:40:53 01/21/2017 10:15:50 Morbid obesity 285750057 E66.01 Essential hypertension 04802808 I10 Knee pain 47008159 M25.5 61 Shoulder pain 37303720 M 25.511 Osteoarthr itis of knee 119633465 M17.0 Neck pain 16884913 M54.2 [id number] Tanner Brantley MD [facility] (Adult/Fa m Med) [address] [place], [place] [id number] 9 02/22/2017 11:07:15 03/14/2017 11:16:14 Morbid obesity 997455093 E66.01 Essential hypertension 74991761 I10 Knee pain 08049836 M25.5 61 [id number] Tanner Brantley MD [facility] (Adult/Fa m Med) [address] [place] [address] 9 06/03/2017 14:50:35 06/04/2017 10:22:02 Knee pain 70325339 M25.561 Shoulder pain 33921429 M 25.511 Chronic neck pain 191996 2086 107 M54.2 Essential hypertension 93612875 I10 Upper resp iratory infection 14913394 J06.9 [id number] Tanner Brantley MD [facility] (Adult/Fa m Med) [address] [place] [address] 9 07/05/2017 11:23:16 07/09/2017 13:35:40 Morbid obesity 068050056 E66.01 Essential hypertension 76293775 I10 Shoulder pain 91837424 M 25.511 Knee pain 35265752 M25.5 61 Neck pain 57709636 M54.2 [id number] Tanner Brantley MD [facility] (Adult/Fa m Med) [address] [place], [place] [id number] 9 10/08/2017 10:46:38 10/24/2017 14:25:15 Morbid obesity 417821808 E66.01 Essential hypertension 66496435 I10 Knee pain 28442002 M25.5 61 Chronic neck pain 153075 2862 107 M54.2 Osteoarthr itis of knee 772173945 M17.0 [id number] Tanner Brantley MD [facility] (Adult/Fa m Med) [address] [place], [place] [id number] 9 12/03/2017 12:02:43 12/04/2017 10:34:44 Shoulder pain 02774659 M25.511 Shoulder joint pain 2679 47909 M25.980 [id number] Tanner Brantley MD [facility] (Adult/Fa m Med) [address] [place], [place] [id number] 9 05/20/2020 11:49:06 05/23/2020 08:21:06 Abdominal pain 51003636 R10.811 Essential hypertension 04793954 I10 Postmenopa usal bleeding 78580281 N95.0 Upper resp iratory infection 16759800 J06.9 Knee pain 47192395 M25.5 61 [id number] [facility] Stoll (Adult Med) [address] [place] [address] 08/04/2021 10:57:59 08/04/2021 13:36:43 Abdominal pain 82342029 R10.9 Knee pain 76102635 M25.5 61 Goiter 0459228 E04.9 Essential hypertension 92796340 I10 Gastroesop hageal reflux disease 222072656 K21.9 Asthma 058929421 J45.90 9 Allergic rhinitis 601845 04 J30.9 Morbid obesity 915722898 E66.01 Hyperlipidemia 50867984 E78.5 [id number] PRACHI Stoll (Adult Med) [address] [place] [address] 09/08/2021 10:21:32 09/08/2021 12:22:31 Essential hypertension 88706568 I10 Goiter 8467962 E04.9 Pain of knee region 1003 823973 M25.569 Allergic rhinitis 135272 04 J30.9 Gastroesop hageal reflux disease 159374275 K21.9 Hyperlipidemia 87719768 E78.5 [id number] PR[facility] Stoll (Adult Med) [address] [place] [address] 10/17/2021 08:33:55 10/17/2021 13:06:16 Essential hypertension 98967172 I10 Upper resp iratory infection 90681972 J06.9 Allergic rhinitis 926107 04 J30.9 Osteoarthr itis of knee 165610956 M17.9 [id number] PRACHI Stoll (Adult Med) [address] [place] [address] 0 11/28/2021 10:43:54 11/28/2021 11:31:04 Allergic rhinitis 63743644 J30.9 Asthma 195015640 J45.90 9 Essential hypertension 52048861 I10 Gastroesop hageal reflux disease 496594463 K21.9 Goiter 0378001 E04.9 Hyperlipidemia 02128062 E78.5 Osteoarthr itis of knee 423950599 M17.9 Bilateral wrist pain 992 8883688 1474950 M25.531 M25.135 [id number] Valeria Arzate MA [facility] (Adult Med) [address] [place] [address] 01/15/2022 12:00:41 01/15/2022 13:13:45 Osteoarthritis of knee 538716018 M17.9 Lipoma of skin and subcutaneous tissue of neck 41802096 D17.0 [id number] Vinod Pinedo MD [address] [address] 07/18/2022 18:29:54 07/19/2022 09:59:28 History and physical examination, pre-employment 019578482 Z02.1 Obesity 854318560 E66.9 Essential hypertension 47848252 I10 Otitis media 84596117 H6 6.91 [id number] Saba Gamez MD [facility] (Adult Med) [address] [place] [address] 11/12/2022 12:01:20 11/13/2022 11:29:34 Osteoarthritis of knee 543965563 M17.9 Asthma 119544434 J45.90 9 Essential hypertension 54341739 I10 Hyperlipidemia 05972201 E78.5 Morbid obesity 672404811 E66.01 Allergic rhinitis 308911 04 J30.9 Goiter 6372521 E04.9 Gastroesop hageal reflux disease 493932838 K21.9 [id number] Saba Gamez MD [facility] (Adult Med) [address] [place] [address] 12/11/2023 11:44:13 12/17/2023 15:00:00 Asthma 912379521 J45.909 Essential hypertension 94599358 I10 Osteoarthr itis of knee 250172970 M17.9 Cough 01476165 R05.9 Indigestion 407951235 K3 0 Health Concerns Section Related Observation LastModified by Organization Detai ls LastModified Time None Recorded Concern Status LastModified by Organization Details LastModified Time None Recorded Advance Directives Directive Y: Payers Encounter Date Sequence Insurance Name Policy Number Policy Henderson Covered Member ID Henderson Member ID Guarantor Name 11/28/2021 1 [facility] ON OR AFTER 05/25/21 (MEDICAID REPLACEMENT - HMO) Claudine Corey [id number] Claudine Corey 01/15/2022 1 [facility] ON OR AFTER 05/25/21 (MEDICAID REPLACEMENT - HMO) Claudine Corey [id number] Claudine Corey 07/18/2022 1 [facility] ON OR AFTER 05/25/21 (MEDICAID REPLACEMENT - HMO) Claudine Corey [id number] Claudine Corey 11/12/2022 1 [facility] ON OR AFTER 05/25/21 (MEDICAID REPLACEMENT - HMO) Claudine Corey [id number] Claudine Corey 12/11/2023 1 [facility] ON OR AFTER 05/25/21 (MEDICAID REPLACEMENT - HMO) Claudine Corey [id number] Claudine Leora Notes Date Note Type Note Provider Name and Address Organization Details Recorded Time 11/28/2021 text/html wrist pain , weakness . Elias Laboy PA-C Attn: [address] [place], [address], [facility] 11/29/2021 21:11:55 07/18/2022 text/html IN [facility] FO R WORK PHYSICAL. SHE HAS NO COMPLAINTS. SHE SAYS SHE THINKS SHE IS HEALTHY. SHE THINKS HER SHOTS ARE UP TO DATE. HER DR. RETIRED RECENTLY. SHE HAS A NEW ONE IN [place]. Vinod Pinedo MD Attn: [address] [place], [address], [facility] 07/18/2022 19:55:47 11/12/2022 text/html She has severe pain in both knees. No relief from ibuprofen. Saba Gamez MD Attn: [address] [place], [address], [facility] 11/12/2022 13:08:49 12/11/2023 text/html Seen in ED two months ago for SOB and productive cough. She is also being seen by orthopedics for her knees. ran out of BP med four days ago. Had gastric discomfort with several nsaids Saba Gamez MD Attn: [address] , [place], [address], [facility] 12/11/2023 13:00:05 OBGyn Episode No OBEpisode recorded.
--- OUTSIDE RECORDS SUMMARY | 2025-02-13 10:53 | XMS_ITS | CONTINUITY OF CARE DOCUMENT ---
Author Name joon dupree Address Unknown Organization [facility] Address [address] [address] [place] [address] Phone [phone] Care Team Providers Care Wind Farm Engineer Name Role Phone Mikey Peralta MD Unavailable [phone] Mikey Peralta MD Unavailable [phone] DIONY FRY Unavailable INSURANCE PROVIDERS Payer name Policy type / Coverage type [place] [employer] party ID [place] MEDICAID (2) Medicaid [id number]
--- OUTSIDE RECORDS SUMMARY | 2025-02-13 10:53 | XMS_ITS | Clinical Summary ---
Author Organization [facility] Address [facility] [place] [address] Care Team Providers Care Land Conservation Specialist Name Role Phone Tanner Brantley MD Primary Care Provider [phone] Allergies Active Allergy Reactions Criticality Noted Date Comments Ampicillin Nausea and Vomiting Low 08/15/2020 Codeine Nausea and Vomiting Low 08/15/2020 Penicillins Nausea and Vomiting Low 08/15/2020 Medications atenolol-chlorth alidone 50-25 MG tablet Take 1 tablet by mouth daily. Active omeprazole 20 MG capsule Take 20 mg by mouth daily. Active albuterol sulfate HFA 108 (90 Base) MCG/ACT inhaler Inhale 2 puffs into the lungs every 6 (six) hours as needed for Wheezing. Active fluticasone propionate 50 MCG/ACT nasal spray 1 spray by Nasal route daily. Active budesonide-formo terol 160-4.5 MCG/ACT inhaler Inhale 2 puffs into the lungs 2 (two) times daily. Active MYLANTA MAXIMUM STRENGTH 400-400-40 MG/5ML suspension 03/04/2020 Active amLODIPine 5 MG tablet 07/31/2020 Active QVAR REDIHALER 80 MCG/ACT AEROSOL, BREATH ACTIVATED 09/28/2019 Active losartan 100 MG tablet 07/31/2020 Active meloxicam 15 MG tablet 02/07/2020 Active mirtazapine 30 MG tablet 08/02/2020 Active potassium chloride CR 10 MEQ Tab CR tablet 07/31/2020 Active Active Problems No known active problems Social History Tobacco Use Types Packs/Day Years Used Date Smoking Tobacco: Former Smokeless Tobacco: Never Alcohol Use Standard Drinks/Week Comments Yes 3.3 (1 standard drink = 0.6 oz p ure alcohol) TWICE A MONTH Comments No Sex and Gender Information Value Date Recorded Sex Assigned at Not on file Legal Sex Female 4:17 PM CDT Gender Identity Not on file Sexual Orientation Not on file Last Filed Vital Signs Vital Sign Reading Time Taken Comments Blood Pressure 137/96 08/19/2020 11:55 AM CDT Pulse 67 08/19/2020 11:55 AM CDT Temperature 36.8 C (98.2 F) 08/19/2020 11:31 AM CDT Respiratory Rate 19 08/19/2020 11:55 AM CDT Oxygen Saturation 100% 08/19/2020 11:55 AM CDT Inhaled Oxygen Concentration - - Weight 119.3 kg (263 lb) 08/15/2020 4:26 PM CDT Height 152.4 cm (5') 08/15/2020 4:26 PM CDT Body Mass Index 51.36 08/15/2020 4:26 PM CDT Plan of Treatment Health Maintenance Due Date Last Done Comments Cervical Cancer Screening Pa p Smear (Age 30 to 64) Every 3 Years 1966 Annual Physical 1969 Hepatitis C 1984 DTaP, Tdap and Td Vaccines ( 1 - Tdap) 1985 Hepatitis B Vaccines (1 of 3 - 19+ 3-dose series) 1985 Cervical Cancer Screening Pa p with HPV Testing (Age 30 to 64) Every 5 Years 1996 Cervical Cancer Screening with HPV 1996 Mammogram Screening 2006 Zoster Vaccines (1 of 2) 2016 COVID-19 Vaccine (2023-2 5 season) 2024 Influenza Adult (#1) 2024 Colorectal Cancer Screening Colonoscopy (10 Years) 08/19/2030 08/19/2020 Meningococcal B Vaccine Aged Out No l onger eligible based on patient's age to complete this topic Meningococcal Vaccine Aged Out No etelvina alexa eligible based on patient's age to complete this topic Pneumococcal Vaccine: Pediat rics (0 to 5 Years) and At-Risk Patients (6 to 64 Years) Aged Out No longer eligi ble based on patient's age to complete this topic RSV Immunizations Under 20 Months Aged Out No longer eligible based on patient's age to complete this topic Insurance YULAN Care Teams Land Conservation Specialist Relationship Specialty Start Date End Date Tanner Brantley MD PCP - General 05/03/16
--- OUTSIDE RECORDS SUMMARY | 2025-02-13 10:53 | XMS_ITS | Data Portability ---
Author Organization [place] - [facility], Main Office Address [address] [place] [address] Care Team Providers Care Technology Analyst Name Role Phone DESI GANDHI Primary Care Provider DESI GANDHI Referring Provider Assessment Encounter Date Assessment Date Assessment LastModified by Organization Details LastModified Time 06/26/2023 06/26/2023 Patient presents today for her 1st Euflexxa injection into the bilateral knees. She has started physical therapy since her last appointment. Today she rates her pain a 8/10. Both injections were completed without issue. We will see her back in 1 week for her 2nd set of injections. We will renew her physical therapy order as well. Not available 06/26/2023 21:29:55 07/03/2023 07/03/2023 Patient presents today for her 2nd Euflexxa injection into the bilateral knees. Today she rates her pain 7/10. She states she does feel some improvement since getting the first round of injections. Both injections were completed without issue. We will see her back in 1 week for her 3rd set of injections. Not available 07/03/2023 12:07:04 07/10/2023 07/10/2023 Patient presents today for her 3rd and final Euflexxa injection into the bilateral knees. Today she rates her pain 8/10. She states she does feel some improvement since starting the injections. Both injections were completed without issue. We will see her back as needed for pain. She is in agreement with this plan. Not available 07/10/2023 13:32:19 12/18/2023 12/18/2023 57-year-old female presents for follow-up of her bilateral knee osteoarthritis. At her last appointments we did bilateral knee gel injections. She felt like this helped for pain in some areas of her knee, like the lateral sides, but is still experiencing pain in the medial and posterior aspects. She was unable to attend to physical therapy the last time we ordered it due to lack of trasportation. She states she would like to keep attending because it was helpful. She ran out of the diclofenac we last ordered for her but felt like it didn't work and would like to try something new. BMI 50.8. She has pain with knee range of motion with palpable crepitus. She has tenderness over the medial and lateral knees. She states she has more reliable transportation now and would like to return to PT. We will place the order. She has already tried meloxicam and diclofenac without relief. We can try celebrex this time. We can see her back in 3-4 months for recheck. Not available 12/18/2023 09:31:34 03/18/2024 03/18/2024 58-year-old female presents for follow-up of her bilateral knees. She reports worse pain in her knees, currently rated as 8/10. She has ofgm-il-wnly arthritis and we have treated her with extensive conservative management including anti-inflammatori es, physical therapy, cortisone injection, and Euflexxa. She reports that these have not helped. Her pain in the knees are worse, and she is now developing pain in her feet and ankles as well as swelling. She has lost about 20 lb since we saw her last. BMI 50.8. She is tenderness palpation of the mediolateral aspects of her knees. Range of motion limited by body habitus. She does have crepitus. She has xsem-sn-wakc arthritis and we have tried extensive conservative management. However, she still has elevated BMI and would not be a good surgical candidate. We will send her a referral to pain management, as well as a bariatric referral to continue working on weight loss. She may follow-up with us again after she has been seen and treated by those specialists. [email or web address] Not available 03/18/2024 17:02:32 Plan of Treatment Reminders Order Date Submit Date Provider Last Modified By Organization Details Last Modified Time Details Appointments None recorded. Lab None recorded. Referral pain management referral - Please review for an appointmen t, patient is not a surgical candidate at this time for TKA. 2023 024 [facility], [address] [place], [address], 4 11:25:19 bariatric surgery referral - review for an appointmen t 2023 024 [facility] Musa Steven, [address], [facility] [address], [place], [address], 4 09:45:28 physical therapist referral - Tyler knee, pt was continuing with PT from previous visits. Orders sent over 04/01, 05/13, and 06/26. 2022 023 [facility], [address] [place], [address], 3 14:25:19 Procedures knee aspiration /injection (PROC) 2022 023 [email or web address] In-Office Order, Internal Use Only DO Not Attach Compendium DO Not Attach Compendium, Do Not Delete/merge, [id number] 12:02:27 knee aspiration /injection (PROC) 2022 023 [email or web address] In-Office Order, Internal Use Only DO Not Attach Compendium DO Not Attach Compendium, Do Not Delete/merge, [id number] 3 11:00:26 knee aspiration /injection (PROC) 2022 023 [email or web address] In-Office Order, Internal Use Only DO Not Attach Compendium DO Not Attach Compendium, Do Not Delete/merge, [id number] 3 10:59:37 Surgeries None recorded. Imaging None recorded. Medication Orders Euflexxa 10 mg/mL (mw 2.4-3.6 million) intra-seferino cular syringe 2022 023 [email or web address] [id number], [address] [place], [address], 4 15:17:51 Euflexxa 10 mg/mL (mw 2.4-3.6 million) intra-seferino cular syringe 2022 023 [email or web address] [facility] [address], [address], 4 15:17:51 Euflexxa 10 mg/mL (mw 2.4-3.6 million) intra-seferino cular syringe 2022 023 [email or web address] [facility] [address] [place], [address], 4 15:17:51 Patient TargetsNo targets recorded. Patient InstructionsNo instructions recorded. Reason for Referral Physical Therapist Referral for Bilateral osteoarthritis of knees Tyler knee Tyler knee, pt was continuing with PT from previous visits. Orders sent over 04/01, 05/13, and 06/26. Referring Physician: Tegan Espino Orthopedic Surgery, Encounter Date: 06/26/2023 Pain Management Referral for Pain of bilateral knee joints Please review for an appointment, patient is not a surgical candidate at this time for TKA. Referring Physician: Carmine Tan Orthopedic Surgery, Encounter Date: 03/18/2024 Bariatric Surgery Referral f or Pain of bilateral knee joints review for an appointment Referring Physician: Carmine Tan Orthopedic Surgery, Encounter Date: 03/18/2024 Results Created Date Observation Date Name Description Value Unit Range Abnormal Flag Note LastModifiedBy Organization Detail LastModifiedTime Result Notes None recorded. Problems Name Problem SNOMED Code Status Onset Date Resolution Date Notes Provider Name and Address Organization Details Recorded Time Pain of bilateral knee joints 7104242788900 04 Active 2022 Not Available [facility] 3 07:50:01 Bilateral osteoarthr itis of knees 2111354785984 07 Active 2022 Not Available [facility] 3 07:50:01 Problem Notes None recorded. Procedures Surgical History Date Name Laterality Status Provider Name and Address Organization Details Recorded Time 3 Euflexxa Injection completed Tegan Espino, SPLICING SUPERVISOR [address], [address], [place], [address], [employer] [facility] 07/10/2023 13:32:14 3 Euflexxa Injection completed Tegan Juilfs, SPLICING SUPERVISOR [address], [address], [place], [address], [employer] [facility] [employer] 07/03/2023 12:07:28 3 Euflexxa Injection completed Teganidalia Espino, SPLICING SUPERVISOR [address], [address], [place], [address], [employer] 06/26/2023 21:28:18 3 Ortho - Cortisone Injection completed Carmine Tan MD [address], [address], [place], [address], [employer] [facility] [employer] 04/01/2023 11:18:18 Gallbladder Surgery completed ZOEY Paiz [employer] [facility] [employer] [facility] 03/18/2024 15:17:22 Imaging Results None recorded. Procedure Notes None recorded. Medical Equipment None Reported. Allergies Allergen ID Allergen Name Allergen Category Reaction Reaction Severity Criticality Documentation Date Start Date Code Code System Note Provider Name and Address Organization Details Recorded Time 82380 ampicilli n medicatio n Not available Not available Not available 02/18/2023 733 RxNorm Preethiced romo, [place] [employer] [facility] [employer] 11:45:19 54912 Product containin g penicilli n (product) medicatio n Not available Not available Not available 02/18/2023 18016 8001 SNOMED Preethi Oliva demetrius, [place] [employer] [facility] [employer] 11:45:26 57183 codeine medicatio n Not available Not available Not available 02/18/2023 2670 RxNorm Preethi Oliva demetrius, [place] [employer] [facility] [employer] [facility] [employer] 11:45:40 Medications Name Sig Start Date Stop Date Status Note LastModified by Organization Details LastModified Time celecoxib 200 mg capsule TAKE 1 CAPSULE BY MOUTH EVERY DAY 2023 active Not Available Not Available Not Avai lable cyclobenzap rine 10 mg tablet TAKE 1 TABLET BY MOUTH 3 TIMES A DAY NEEDED active Not Available Not Available No t Available promethazin e-DM 6.25 mg-15 mg/5 mL oral syrup TAKE 5 MILLILITE RS BY MOUTH 4 TIMES A DAY active Not Available Not Available No t Available ipratropium 0.5 mg-albutero l 3 mg (2.5 mg base)/3 mL nebulizatio n soln INHALE 3 ML BY NEBULIZAT ION 4 TIMES A DAY NEEDED active Not Available Not Available No t Available prednisolon e sodium phosphate 15 mg/5 mL (3 mg/mL) oral solution TAKE 20 ML BY MOUTH ONCE DAILY 03/18 completed Not Available Not Available Not Available cetirizine 10 mg tablet TAKE 1 TABLET BY MOUTH EVERY DAY active Not Available Not Available No t Available azithromyci n 250 mg tablet TAKE 2 TABLETS BY MOUTH TODAY, THEN TAKE 1 TABLET DAILY FOR 4 DAYS 02/18 completed Not Available Not Available Not Available ibuprofen 800 mg tablet TAKE 1 TABLET BY MOUTH THREE TIMES A DAY WITH MEALS active Not Available Not Available No t Available promethazin e 6.25 mg/5 mL oral syrup TAKE 20 ML EVERY DAY BY ORAL ROUTE. 02/18 completed Not Available Not Available Not Available meloxicam 15 mg tablet TAKE 1 TABLET BY MOUTH EVERY DAY 2022 active Not Available Not Available Not Avai lable sucralfate 1 gram tablet TAKE 1 TABLET BY MOUTH TWICE DAILY FOR 1 MONTH NEEDED 02/18 completed Not Available Not Available Not Available prednisone 20 mg tablet TAKE 2 TABLETS BY MOUTH EVERY DAY FOR 5 DAYS 03/18 completed Not Available Not Available Not Available amlodipine 5 mg tablet TAKE 1 TABLET BY MOUTH EVERY DAY 02/18 completed Not Available Not Available Not Available doxycycline monohydrate 100 mg tablet TAKE 1 TABLET BY MOUTH TWICE A DAY 03/18 completed Not Available Not Available Not Available dicyclomine 20 mg tablet TAKE 1 TABLET BY MOUTH FOUR TIMES A DAY 07/05 completed Not Available Not Available Not Available Kenalog 10 mg/mL suspension for injection Take 10 mg by injection route. 2022 active [facility]: [phone] Not Available Not Available Not Available benzonatate 100 mg capsule TAKE 1 CAPSULE BY MOUTH EVERY 8 HOURS NEEDED FOR COUGH AND CONGESTIO N active Not Available Not Available No t Available hydrocodone 7.5 mg-acetamin ophen 325 mg tablet active Not Available Not Available No t Available cephalexin 250 mg/5 mL oral suspension TAKE 10 MILLILITE RS BY MOUTH 2 TIMES A DAY. DISCARD REMAINDER active Not Available Not Available No t Available omeprazole 20 mg capsule,del ayed release TAKE 1 CAPSULE BY MOUTH EVERY DAY active Not Available Not Available No t Available diclofenac sodium 75 mg tablet,vicky yed release TAKE 1 TABLET BY MOUTH TWICE A DAY 03/18 completed Not Available Not Available Not Available hydrochloro thiazide 25 mg tablet TAKE 1 TABLET BY MOUTH EVERY DAY 02/18 completed Not Available Not Available Not Available albuterol sulfate HFA 90 mcg/actuati on aerosol inhaler INHALE 2 PUFFS BY MOUTH TWICE A DAY NEEDED. active Not Available Not Available No t Available doxycycline hyclate 100 mg tablet TAKE 1 TABLET BY MOUTH TWICE A DAY FOR 10 DAYS 03/18 completed Not Available Not Available Not Available dicyclomine 10 mg capsule TAKE 1 CAPSULE BY MOUTH TWICE A DAY NEEDED FOR 30 DAYS 02/18 completed Not Available Not Available Not Available loratadine 10 mg tablet TAKE 1 TABLET BY MOUTH EVERY DAY IN THE MORNING 02/18 completed Not Available Not Available Not Available olmesartan 20 mg tablet TAKE 1 TABLET BY MOUTH EVERY DAY IN THE MORNING active Not Available Not Available No t Available azithromyci n 500 mg tablet TAKE 1 TABLET BY MOUTH EVERY DAY FOR 3 DAYS 02/18 completed Not Available Not Available Not Available nitrofurant oin monohydrate /macrocryst als 100 mg capsule active Not Available Not Available Not Available Euflexxa 10 mg/mL (mw 2.4-3.6 million) intra-artic ular syringe Inject 2.5 mL by intra-art icular route for 35 days. 03/18 completed Not Available Not Available Not Available ropivacaine (PF) 5 mg/mL (0.5 %) injection solution Take 20 mg by injection route. 2022 active [facility] 98186 -064- 01 Not Available Not Available Not Available Pennsaid 20 mg/gram/act uation (2 %) topical soln in metered-dos e pump APPLY 2 PUMPS TO THE AFFECTED AREAS TWO TIMES DAILY 02/18 completed Not Available Not Available Not Available Qvar RediHaler 80 mcg/actuati on HFA breath activated aerosol INHALE 2 PUFFS INTO THE LUNGS TWICE A DAY FOR 30 DAYS 02/18 completed Not Available Not Available Not Available Vitals Date Recorded Body height Body mass index (BMI) Body weight Provider Name and Address Organization Details Last Updated DateTime 06/26/2023 152.4 cm 50.8 kg/m2 337194.02 g Adrienne Gilliland ATC L [facility] [employer] [facility] 06/26/2023 10:53:39 Date Recorded Body height Body mass index (BMI) Body weight Provider Name and Address Organization Details Last Updated DateTime 07/03/2023 152.4 cm 50.8 kg/m2 005065.02 g Yenni Campbell [facility] [employer] [facility] 07/03/2023 10:55:21 Date Recorded Body height Body mass index (BMI) Body weight Provider Name and Address Organization Details Last Updated DateTime 07/10/2023 152.4 cm 50.8 kg/m2 950259.02 kevin Millard CNA [facility] [employer] [facility] 07/10/2023 12:00:33 Date Recorded Body height Body mass index (BMI) Body weight Pain severity - 0-10 verbal numeric rating [Score] - Reported Provider Name and Address Organization Details Last Updated DateTime 12/18/2023 152.4 cm 35.2 kg/m2 93912.63 g Laura Campbell [facility] [employer] [facility] 12/18/2023 09:14:59 Date Recorded Body height Body mass index (BMI) Body weight Pain severity - 0-10 verbal numeric rating [Score] - Reported Provider Name and Address Organization Details Last Updated DateTime 03/18/2024 152.4 cm 50.8 kg/m2 624763.02 g Laura Campbell [facility] [employer] [facility] 03/18/2024 15:15:58 Social History Question Answer Notes LastModified by Organizat ion Details LastModified Time Tobacco Smoking Status Never Smoker Preethi romo [facility] [employer] [facility] 02/18/2023 11:47:06 What Is Your Level Of Alcohol Consumption? None [email or web address] Information not available 02/18/2023 What Was The Date Of Your Most Recent Tobacco Screening? 03/18/2024 [email or web address] Information not available 03/18/2024 Sex: Unknown Functional Status None recorded. Mental Status None recorded. Family History Relationship Description Onset Age of this Age Resolved Age Notes LastModified by Organization Details LastModified Time Sister Family history of malignant neoplasm [email or web address] Not available 2023 15:16:33 Brother Diabetes mellitus [email or web address] Not available 2023 15:16:42 Medical History Condition Response ARTHRITIS Y Gynecological HistoryNo gynecological history recorded. Obstetrics History GPAL:G 0 P 0 0 0 0 Past Encounters Encounter ID Performer Location Encounter Start Date Encounter Closed Date Diagnosis/Indication Diagnosis SNOMED-CT Code Diagnosis ICD10 Code Diagnosis Note [id number] Tegan Espino NP [facility] [place] [address] 02/18/2023 11:24:55 02/18/2023 12:22:39 Pain of bilateral knee joints 5907186530 33450 M25.561 M25.562 [id number] MD MYRIAM Benoit_Kevin [address] [address] 04/01/2023 10:34:52 04/01/2023 11:12:45 Pain of bilateral knee joints 7373495052 90598 M25.561 M25.562 Bilateral osteoarthritis of knees 8929432487 84602 M17.0 [id number] Tegan Espino NP [facility] [address] [address] 05/13/2023 11:26:07 05/13/2023 11:57:30 Bilateral osteoarthritis of knees 9663421313 41232 M17.0 Pain of bi lateral knee joints 9770332794 55608 M25.561 M25.562 [id number] [facility] [address] [place] [address] 06/26/2023 10:51:21 06/26/2023 11:56:13 Bilateral osteoarthritis of knees 8861235150 88025 M17.0 Pain of bi lateral knee joints 0151832726 20232 M25.561 M25.562 [id number] Tegan Espino, SPLICING SUPERVISOR [facility] [address] [place] [address] 07/03/2023 10:52:01 07/03/2023 11:20:38 Bilateral osteoarthritis of knees 1300908689 99991 M17.0 [id number] Tegan Espino, SPLICING SUPERVISOR [facility] [address] [place] [address] 07/10/2023 11:58:42 07/10/2023 12:18:48 Bilateral osteoarthritis of knees 9546310254 90121 M17.0 Pain of bi lateral knee joints 0551840386 53243 M25.561 M25.666 [id number] Tegan Espino NP [facility] [address] [place] [address] 12/18/2023 09:12:53 12/18/2023 11:06:53 Bilateral osteoarthritis of knees 1929951032 59067 M17.0 [id number] Carmine Tan MD [facility] [address] [place] [address] 03/18/2024 14:39:57 03/18/2024 15:47:16 Pain of bilateral knee joints 3420829413 43884 M25.561 M25.562 Health Concerns Section Related Observation LastModified by Organization Detai ls LastModified Time None Recorded Concern Status LastModified by Organization Details LastModified Time None Recorded Advance Directives Directive None Recorded Payers Encounter Date Sequence Insurance Name Policy Number Policy Henderson Covered Member ID Henderson Member ID Guarantor Name 06/26/2023 1 [facility] ON OR AFTER 05/25/21 (MEDICAID REPLACEMENT - HMO) Claudine Corey [id number] Claudine Corey 07/03/2023 1 [facility] ON OR AFTER 05/25/21 (MEDICAID REPLACEMENT - HMO) Claudine Corey [id number] Claudine Corey 07/10/2023 1 [facility] - DOS ON OR AFTER 21 (MEDICAID REPLACEMENT - HMO) Claudine Corey [id number] Claudine Corey 12/18/2023 1 [facility] - DOS ON OR AFTER 21 (MEDICAID REPLACEMENT - HMO) Claudine Corey [id number] Claudine Corey 03/18/2024 1 [facility] - DOS ON OR AFTER 21 (MEDICAID REPLACEMENT - HMO) Claudine Corey [id number] Claudine Corey OBGyn Episode No OBEpisode recorded.
[2025-02-13 11:02] VITALS: BP 151/94; PULSE 90; RESP 16; TEMP 36.6; O2SAT 99
--- NOTE | 2025-02-13 11:15 | ED.LOWEXIN ---
HPI - Extremity Injury (Lower) General Chief Complaint: Extremity Injury, Lower Stated Complaint: bilateral leg pain x1 year Time Seen by Provider: 02/13/25 11:12 Source: patient Mode of arrival: ambulatory Limitations: no limitations History of Present Illness HPI Narrative: Patient presents with bilateral leg pain over the past year but that seems to be worsening with a past 2 days. No history of DVT or PE. Not on anticoagulation. Denies any travel or exogenous hormone use. No palliating or provoking factors. She states that pain is a 910/10 in severity. She has been trying to take extra-strength Tylenol. She takes 1 of these 500 mg tablets approximately 4 times daily. She is also complaining a 'knot at the base of her that seems to be popping over the past 2-3 weeks. She denies any hand dominance as she states she is ambidextrous. Patient states that she will experience pain and swelling into the pad of this right follow as well as pain during the entirety the digit. She also states that at times all of the fingers go numb, sparing any of them and she will have to shake hand at the wrist due to this pain. She does have a primary care physician although she states they are new she cannot recall the name right now. Related Data Allergies Allergy/AdvReac Type Severity Reaction Status Date / Time codeine AdvReac Intermediate Nausea and Verified 02/13/25 10:52 Vomiting Penicillins AdvReac Intermediate Nausea and Verified 02/13/25 10:52 Vomiting ampicillin AdvReac Unknown Nausea and Verified 02/13/25 10:52 Vomiting PMFSH Past Medical History Medical History Ambidextrous Asthma Hypertension Social History Social History (Updated 03/06/20 @ 13:13 by Andrea Dixon MD) Smoking status: Never smoker Gender identity (if verbalized by the patient): Female Exam Narrative: GENERAL: Well-appearing, well-nourished, and in no acute distress. HEAD: Normocephalic, atraumatic. EYES: Non injected, non icteric ENT: Nares clear, no rhinorrhea or epistaxis. NECK: Supple. CHEST: Speaking in full sentences. No respiratory distress. HEART: Regular rate and rhythm. . ABDOMEN: Morbidly obese but Soft, nondistended. EXTREMITIES: Normal range of motion. Bilateral legs are very large with excess adipose tissue at calves but more prominent throughout bilateral thighs. There is no edema bilaterally however. Legs are warm and well perfused. No tenderness to palpation of the calves or throughout the thighs. Compartments soft. No injury to the nail right thumb. SKIN: Warm, dry, no rash. NEURO: No focal deficits. Alert and oriented x3. Sensation intact throughout bilateral legs. 5/5 strength with bilateral ankle dorsiflexion/plantar flexion, knee flexion extension. Sensation intact throughout the wrist, hand, and all digits including throughout some. No marked swelling of the digit which is not held in fixed position and is able to demonstrate flexion extension abduction adduction; it is without laceration/ecchymosis. PSYCH: Normal mood and affect. Course Vital Signs Vital signs: Vital Signs Temperature 97.9 F 02/13/25 11:02 Pulse Rate 90 02/13/25 11:02 Respiratory Rate 16 02/13/25 11:02 Blood Pressure 151/94 H 02/13/25 11:02 Pulse Oximetry 99 02/13/25 11:02 Temperature 97.9 F 02/13/25 11:02 Pulse Rate 90 02/13/25 11:02 Respiratory Rate 16 02/13/25 11:02 Blood Pressure 151/94 H 02/13/25 11:02 Pulse Oximetry 99 02/13/25 11:02 MDM - Extremity Injury (Lower) MDM Narrative Medical decision making narrative: Patient presents with pain in her lower extremities for the past 1 year worsening over past 2 days. Has been using 1 500 mg tablet acetaminophen 4 times daily. While in the emergency department she does state that she has also noticed a knot the base right thumb over the past 2-3 weeks that pops when moving. In the emergency department she is afebrile with vital signs notable for hypertension. Patient has morbid obesity with a BMI of nearly 47 kg/m2 and some of the pain in legs may be secondary to this given their weight. Dimer 1; will proceed with ultrasound imaging. This is negative. Work up largely unremarkable. Patient discharged stable condition with prescription for acetaminophen at appropriate dosing as well as with prescription for NSAIDs which she is advised may be more effective given evidence osteoarthritis on imaging. Differential Diagnosis Differential diagnosis: Likely other (DVT, rhabdomyolysis, symptomatic anemia, electrolyte abnormalities particularly hypokalemia hypomagnesemia; pain secondary to weight and pressure; neuropathy) Lab Data Attestation: I reviewed the patient's lab results. Lab results narrative: Normal electrolytes and CPK 02/13/25 12:07 02/13/25 12:07 Labs: Lab Results 02/13/25 Range/Units 12:07 WBC 7.5 (4.5-10.0) K/mm3 RBC 5.09 (4.2-5.4) M/mm3 Hgb 14.0 (12.0-15.0) g/dL Hct 43.2 (37.0-47.0) % MCV 84.9 (80-100) fl MCH 27.5 (26-34) pg MCHC 32.4 (32-36) g/dl RDW 14.9 H (11.5-14.5) % Plt Count 314 (150-375) k/mm3 MPV 9.1 (7.4-10.4) fl Immature Gran % (Auto) 0.4 (0-0.5) % Neut % (Auto) 66.7 (45.5-73.1) % Lymph % (Auto) 23.9 (18.3-44.2) % [place] % (Auto) 6.8 (2.6-8.5) % Eos % (Auto) 1.9 (0-4.4) % Baso % (Auto) 0.3 (0.2-1.2) % Lymph # (Auto) 1.80 (0.9-3.2) K/mm3 [place] # (Auto) 0.5 (0.1-0.6) K/mm3 Eos # (Auto) 0.1 (0-0.3) K/mm3 Baso # (Auto) 0.0 (0.0-0.1) K/mm3 Abs Immat Gran (auto) 0.03 (0.00-0.031) K/mm3 Absolute Neuts (auto) 5.0 (1.3-6.7) K/mm3 Absolute Nucleated RBC 0.000 (0.0-0.012) K/mm3 Nucleated RBC % 0.0 (0.0-0.2) % D-Dimer 1.00 H (<0.48) ug/mL Sodium 139 (137-145) mmol/L Potassium 4.0 (3.4-5.0) mmol/L Chloride 105 (98-107) mmol/L Carbon Dioxide 25 (22-30) mmol/L Anion Gap 9 (4-12) mmol/L BUN 10 (7-17) mg/dL Creatinine 0.85 (0.7-1.0) mg/dL Estim Creat Clear Calc 71 ml/min Estimated GFR > 60 (59 - ) Glucose 93 (65-110) mg/dL Calcium 9.0 (8.4-10.2) mg/dL Magnesium 2.0 (1.6-2.3) mg/dL Total Creatine Kinase 92 (30-135) U/L NT-Pro-B Natriuret Pep < 20 (19.9-100) pg/mL Imaging Data Radiologist's impression: IMPRESSION: 1: No lower extremity deep venous thrombosis. Impression: 1: Moderate polyarticular osteoarthritis, most advanced at the first metacarpal phalangeal joint. Discharge Plan Discharge Clinical Impression: Polyarticular osteoarthritis, Chronic pain of lower extremity, bilateral, Morbid obesity with BMI of 45.0-49.9, adult Patient Disposition: Home, Self-Care Condition: Stable Instructions: Antibiotic Form, Osteoarthritis (DC), Weight Management (ED), Leg Cramps (ED), Mediterranean Diet (DC) Additional Instructions: Acetaminophen/Tylenol (maximum 4000 mg per day) is safe to take with NSAIDs (ibuprofen/Motrin) for pain relief. The NSAIDs can help with the pain you experience in the base of your thumb where you have evidence of osteoarthritis. Otherwise your workup did not reveal a cause of your pain as your red blood cells, muscle enzyme, and electrolytes were normal. No evidence of a blood clot your legs. Follow-up with primary care physician. If you do not have 1 the name of the doctors listed below. The pain may be related to the excess weight you carry in your legs. Patient Language: [place] Island[place] Prescriptions: New acetaminophen 500 mg capsule See Rx Instructions .ROUTE .COMPLEX PRN (Reason: pain) Qty: 30 0RF Rx Instructions: Take 1 or 2 (500mg - 1000mg) tablets every 6 hours as needed for pain ibuprofen 600 mg tablet 600 mg PO TID PRN (Reason: pain) Qty: 30 0RF No Action benzonatate [Tessalon Perles] 100 mg capsule 100 mg PO TID PRN (Reason: cough) Qty: 30 0RF Follow-up/Referrals: PHYSICIAN NOT ON STAFF,NONSTAFF [Non-Staff] - Volodymyr Dixon MD [Physician] - (Family practice/primary care physician) Stand Alone Forms: Work/School Release IP Time of Disposition: 13:51
--- OUTSIDE RECORDS SUMMARY | 2025-02-13 11:27 | XMS_ITS | CONTINUITY OF CARE DOCUMENT ---
Author Name joon dupree Address Unknown Organization [facility] Address [address] [place] [address] Phone [phone] Care Team Providers Care Hotel Front Office Manager Name Role Phone Mikey Peralta MD Unavailable [phone] Mikey Peralta MD Unavailable [phone] DIONY FRY Unavailable [phone] INSURANCE PROVIDERS Payer name Policy type / Coverage type [place] red democr[employer] [place] MEDICA[employer] (2) Medicaid [id number]
--- OUTSIDE RECORDS SUMMARY | 2025-02-13 11:27 | XMS_ITS | Clinical Summary ---
Author Organization [facility] Address [facility] [place] [address] Care Team Providers Care Parasitologist Name Role Phone Tanner Brantley MD Primary Care Provider [phone] Allergies Active Allergy Reactions Criticality Noted Date [...] patient's age to complete this topic Insurance [employer] Care Teams Parasitologist Relationship Specialty Start Date End Date Tanner Brantley MD PCP - General 05/03/16
[2025-02-13] MEDS: ACETAMINOPHEN 325 MG TABLET 650 MG PO (12:04)
[2025-02-13 12:27] LABS: Basophils Percent Auto 0.3 % (0.2-1.2); Eosinophils Absolute Auto 0.1 K/mm3 (0-0.3); Eosinophils Percent Auto 1.9 % (0-4.4); Hematocrit 43.2 % (37.0-47.0); Immature Granulocyte Absolute 0.03 K/mm3 (0.00-0.031); Immature Granulocyte Percent A 0.4 % (0-0.5); Lymphocytes Percent Auto 23.9 % (18.3-44.2); Mean Corpuscular HGB Conc 32.4 g/dl (32-36); Mean Corpuscular Hemoglobin 27.5 pg (26-34); Mean Corpuscular Volume 84.9 fl (80-100); Mean Platelet Volume 9.1 fl (7.4-10.4); Monocytes Absolute Auto 0.5 K/mm3 (0.1-0.6); Monocytes Percent Auto 6.8 % (2.6-8.5); Neutrophils Percent Auto 66.7 % (45.5-73.1); Platelet Count Result 314 k/mm3 (150-375); Red Blood Count 5.09 M/mm3 (4.2-5.4); Red Cell Distribution Width 14.9 % (11.5-14.5); White Blood Count 7.5 K/mm3 (4.5-10.0)
[2025-02-13 12:28] LABS: Anion Gap 9 mmol/L (4-12); Blood Urea Nitrogen 10 mg/dL (7-17); Carbon Dioxide 25 mmol/L (22-30); Chloride 105 mmol/L (98-107); Creatine Kinase 92 U/L (30-135); Estimated CRCL calculation 71 ml/min; Estimated Glomerular Filt Rate > 60; Glucose 93 mg/dL (65-110); Sodium 139 mmol/L (137-145)
[2025-02-13 12:37] LABS: NT Pro B Type Natriuretic Pept < 20 pg/mL (19.9-100)
== END 2025-02-13 14:00 | disposition home or self-care (01) ==
PROVIDERS: Emergency Provider Student in an Organized Health Care Education/Training Program; PCP Internal Medicine
DX: M79.605 Pain in left leg (principal); M79.604 Pain in right leg; G89.29 Other chronic pain; M18.9 Osteoarthritis of first carpometacarpal joint, unspecified; E66.01 Morbid (severe) obesity due to excess calories; Z68.42 Body mass index [BMI] 45.0-49.9, adult; J45.909 Unspecified asthma, uncomplicated; I10 Essential (primary) hypertension
CPT/HCPCS: 36415; 73140; 80048; 82550; 83735; 83880; 85025; 85380; 93970; 99283; 99284; A9270